=== PATIENT | male | born 1965 | race Caucasian/White ===

== ENCOUNTER 2019-10-19 07:50 | Emergency (ER) | payer OTHER, SELFPAY ==
--- NOTE | ~2019-10-19 | XR_ITS ---
EXAMINATION: XR chest 2V DATE: 10/19/2019 08:16 INDICATION: Heart fluttering TECHNIQUE: PA and lateral views of the chest were obtained. COMPARISON: None FINDINGS: The lungs are clear with no focal airspace opacities, pulmonary edema, pleural effusion or pneumothor ax. The cardiomediastinal silhouette is normal. Mild dextrocurvature the thoracolumbar junction. Mild thoracic spondylosis. IMPRESSION: 1. No acute cardiopulmonary disease. Reviewed, dictated and finalized at location A.
--- NOTE | 2019-10-19 07:52 | ECG_ITS ---
Measurements Intervals [place] Rate: 96 P: 73 NM: 159 QRS: 20 QRSD: 102 T: 49 QT: 345 QTc: 437 Interpretive Statements SINUS RHYTHM INCOMPLETE RIGHT BUNDLE BRANCH BLOCK BORDERLINE T WAVE ABNORMALITY- ANTERIOR LEADS BASELINE ARTIFACT- II, III, AVL, AVF BORDERLINE ECG Electronically Signed On 10-19-2019 8:03:11 CDT by Vikash Martinez D.O.
[2019-10-19 08:05] VITALS: BP 142/92; PULSE 90; RESP 22; TEMP 36.8; O2SAT 98
--- NOTE | 2019-10-19 08:07 | ED.ARRPALP ---
HPI - Arrhythmia/Palpitations General Chief Complaint: Arrhythmia/Palpitations Stated Complaint: don't feel right, heart fluttering Time Seen by Provider: 10/19/19 08:06 Source: patient and family Mode of arrival: ambulatory Limitations: no limitations History of Present Illness HPI narrative: Patient is a 54-year-old male who presents for evaluation of palpitations. Patient reports he was getting ready for work when he suddenly felt his heart beating rapidly, almost as if it was skipping beats, and patient states that he began to panic. Patient states he ate some breakfast and then began to feel a bit better, but still felt very panicked about the palpitations. He denied any chest pain, shortness of breath, nausea or diaphoresis. Patient states that he recently started some new blood pressure medications within the last 2 weeks, and has been referred to food safety field specialist Dr. Quijano for follow-up. No history of heart attack. There is a positive family history of coronary artery disease. Patient denies any current chest pain, shortness of breath or palpitations. He states symptoms lasted approximately 10 minutes before resolving. Patient states he felt slightly lightheaded and dizzy, but did not feel as if he was going to pass out. No current symptoms. Related Data Home Medications Medication Instructions Recorded Confirmed ergocalciferol (vitamin D2) 50,000 unit PO WEEKLY 10/19/19 [Vitamin D2] metoprolol succinate 25 mg PO HS 10/19/19 Allergies Allergy/AdvReac Type Severity Reaction Status Date / Time No Known Allergies Allergy Verified 10/19/19 09:34 Review of Systems Review of Systems: Narrative: CONSTITUTIONAL: Denies fever, chills, or sweats. EYES: Denies visual changes, redness, or discharge. ENT: Denies rhinorrhea, congestion, sore throat, or otalgia. CARDIOVASCULAR: Denies chest pain, reports palpitations now resolved RESPIRATORY: Denies cough or dyspnea. GASTROINTESTINAL: Denies abdominal pain, nausea, vomiting, or diarrhea. GENITOURINARY: Denies dysuria or hematuria. SKIN: Denies rash or itching. MUSCULOSKELETAL: Denies back pain, joint pain, or myalgia. NEUROLOGIC: Denies headache, numbness, or weakness. PSYCHIATRIC: History of anxiety PMFSH Past Medical History Medical History (Updated 10/19/19 @ 12:55 by Melony Quintero MD) Hypertension Surgical History Surgical History (Updated 10/19/19 @ 12:55 by Melony Quintero MD) No pertinent past surgical history Social History Social History (Updated 10/19/19 @ 12:55 by Melony Quintero MD) Smoking status: Never smoker Substance use: never Living arrangements: with family Gender identity (if verbalized by the patient): Male Sexual Orientation (if Verbalized by the Patient): Straight or Heterosexual Exam Narrative: Exam Narrative: GENERAL: Awake, alert, conversant, anxious appearing HEAD: Normocephalic, atraumatic. EYES: PERRLA and EOMI. ENT: Nares clear, no rhinorrhea or epistaxis. Mucous membranes moist. NECK: Supple. CHEST: No respiratory distress, breathing even and non labored HEART: Regular rate, sinus rhythm ABDOMEN:Non distended, non tender EXTREMITIES: Normal range of motion. No edema. SKIN: Warm, dry, no rash. NEURO:No focal deficits. Alert and oriented x3 Course Vital Signs Vital signs: Vital Signs Temperature 36.8 C 10/19/19 08:05 Pulse Rate 90 10/19/19 08:05 Respiratory Rate 22 H 10/19/19 08:05 Blood Pressure 142/92 H 10/19/19 08:05 Pulse Oximetry 98 10/19/19 08:05 Temperature 36.8 C 10/19/19 08:05 Pulse Rate 78 10/19/19 13:10 Respiratory Rate 20 10/19/19 13:10 Blood Pressure 130/84 10/19/19 13:10 Pulse Oximetry 99 10/19/19 13:10 MDM - Arrhythmia/Palpitations MDM Narrative Medical decision making narrative: Pt presented for evaluation of palpitations that are resolved at the time of assessment. Pt without other chest pain, anginal type symptoms. Pt with normal exam, no
[2019-10-19 09:00] VITALS: BP 146/94; PULSE 75; RESP 20; O2SAT 98
[2019-10-19 09:07] LABS: Basophils Absolute Auto 0.1 K/mm3 (0.0-0.1); Basophils Percent Auto 1.1 % (0.2-1.2); Eosinophils Percent Auto 0.5 % (0-4.4); Hemoglobin 14.7 g/dL (14.0-18.0); Immature Granulocyte Absolute 0.02 K/mm3 (0.00-0.031); Immature Granulocyte Percent A 0.3 % (0-0.5); Lymphocytes Absolute Auto 1.54 K/mm3 (0.9-3.2); Lymphocytes Percent Auto 20.9 % (18.3-44.2); Mean Corpuscular HGB Conc 34.2 g/dl (32-36); Mean Corpuscular Hemoglobin 30.1 pg (26-34); Mean Corpuscular Volume 88.1 fl (80-100); Mean Platelet Volume 9.5 fl (7.4-10.4); Monocytes Absolute Auto 0.6 K/mm3 (0.1-0.6); Neutrophils Absolute Auto 5.1 K/mm3 (1.3-6.7); Neutrophils Percent Auto 69.2 % (45.5-73.1); Platelet Count Result 210 k/mm3 (150-375); Red Blood Count 4.88 M/mm3 (4.6-6.20); Red Cell Distribution Width 12.4 % (11.5-14.5); White Blood Count 7.4 K/mm3 (4.5-10.0)
[2019-10-19 09:16] LABS: INR 1.1; Prothrombin Time 14.3 Seconds (11.1-14.7)
[2019-10-19 09:17] LABS: Partial Thromboplastin Time 28.4 SECONDS (22.3-36.8)
[2019-10-19 09:18] LABS: Blood Urea Nitrogen 17 mg/dL (9-20); Calcium 8.7 mg/dL (8.4-10.2); Carbon Dioxide 24 mmol/L (22-30); Chloride 105 mmol/L (98-107); Estimated CRCL calculation 78 ml/min; Estimated Glomerular Filt Rate > 60; Glucose 115 mg/dL (75-110); Potassium 4.6 mmol/L (3.4-5.0); Sodium 137 mmol/L (137-145)
[2019-10-19 09:30] VITALS: BP 135/88; PULSE 66; RESP 20; O2SAT 100
[2019-10-19 09:30] LABS: Troponin I < 0.012 ng/mL (0.000-0.034)
[2019-10-19] MEDS: ASPIRIN 81 MG CHEWABLE TABLET 324 MG PO (09:31)
[2019-10-19 11:00] VITALS: BP 146/94; PULSE 82; RESP 20; O2SAT 99
[2019-10-19 12:00] VITALS: BP 130/99; PULSE 75; RESP 20; O2SAT 100
[2019-10-19 12:51] LABS: Troponin I < 0.012 ng/mL (0.000-0.034)
[2019-10-19 13:10] VITALS: BP 130/84; PULSE 78; RESP 20; O2SAT 99
--- NOTE | 2019-10-26 12:09 | WPDHOLTEREM ---
Holter/Event Monitor Holter/Event Monitor Date of procedure: 10/19/19 Procedure Type: 48 hour holter monitor Indications: Palpitations Conclusion: 1. 48 hour holter monitor on 10/19/19. 2. Underlying rhythm is sinus rhythm. HR range 46-152 bpm; average HR 67 bpm. 3. There are 26 premature supraventricular complexes. One episode of atrial tachycardia at 110 bpm lasting 6 beats. 4. No premature ventricular complex. No ventricular tachycardia. 5. No sinoatrial or atrioventricular blocks. No significant pauses greater than 2 seconds. 6. No symptoms available for correlation.
== END 2019-10-19 13:12 | disposition home or self-care (01) ==
PROVIDERS: Emergency Provider Emergency Medicine; PCP Family Medicine
DX: R00.2 Palpitations (principal); I10 Essential (primary) hypertension; I45.10 Unspecified right bundle-branch block; R94.31 Abnormal electrocardiogram [ECG] [EKG]
CPT/HCPCS: 36415; 71046; 80048; 84484; 85025; 85610; 85730; 93005; 93225; 93226; 99284; A9270

== ENCOUNTER 2020-11-06 01:00 | Emergency (ER) | payer OTHER, SELFPAY ==
--- NOTE | ~2020-11-06 | XR_ITS ---
EXAMINATION: XR chest 1V portable DATE: 11/06/2020 01:18 INDICATION: Chest pain. Heart flutter. TECHNIQUE: frontal view of the chest was obtained. COMPARISON: Chest radiograph dated 10/19/2019 FINDINGS: The lungs are clear with no focal airspace opacities, pulmonary edema, pleural effusion or pneumothor ax. The cardiomediastinal silhouette is normal. Visualized bones and soft tissues are unremarkable. IMPRESSION: 1. No acute cardiopulmonary disease. Reviewed, dictated and finalized at location A.
--- NOTE | 2020-11-06 01:08 | ECG_ITS ---
Measurements Intervals [place] Rate: 100 P: 68 [place]: 167 QRS: -9 QRSD: 102 T: 38 QT: 353 QTc: 456 Interpretive Statements SINUS TACHYCARDIA INCOMPLETE RIGHT BUNDLE BRANCH BLOCK EARLY PRECORDIAL R/S TRANSITION ST-T WAVE ABNORMALITY IN ANTEROLATERAL LEADS- CONSIDER ISCHEMIA BASELINE ARTIFACT- II, III, AVF, V1, V4 ABNORMAL ECG Electronically Signed On 11-06-2020 5:56:56 CDT by Vikash Martinez D.O.
[2020-11-06 01:13] VITALS: BP 166/86; PULSE 110; RESP 16; TEMP 36.7; O2SAT 100
[2020-11-06 01:18] LABS: Basophils Absolute Auto 0.2 K/mm3 (0.0-0.1); Basophils Percent Auto 1.2 % (0.2-1.2); Eosinophils Absolute Auto 0.1 K/mm3 (0-0.3); Eosinophils Percent Auto 1.1 % (0-4.4); Hematocrit 44.5 % (42.0-52.0); Hemoglobin 14.9 g/dL (14.0-18.0); Immature Granulocyte Absolute 0.03 K/mm3 (0.00-0.031); Immature Granulocyte Percent A 0.2 % (0-0.5); Lymphocytes Absolute Auto 5.84 K/mm3 (0.9-3.2); Lymphocytes Percent Auto 45.4 % (18.3-44.2); Mean Corpuscular HGB Conc 33.5 g/dl (32-36); Mean Corpuscular Hemoglobin 30.5 pg (26-34); Mean Corpuscular Volume 91.2 fl (80-100); Mean Platelet Volume 9.9 fl (7.4-10.4); Monocytes Absolute Auto 1.4 K/mm3 (0.1-0.6); Monocytes Percent Auto 10.8 % (2.6-8.5); Neutrophils Absolute Auto 5.3 K/mm3 (1.3-6.7); Neutrophils Percent Auto 41.3 % (45.5-73.1); Platelet Count Result 291 k/mm3 (150-375); Red Blood Count 4.88 M/mm3 (4.6-6.20); Red Cell Distribution Width 12.4 % (11.5-14.5); White Blood Count 12.9 K/mm3 (4.5-10.0)
[2020-11-06] MEDS: ASPIRIN 81 MG CHEWABLE TABLET 324 MG PO (01:29)
[2020-11-06] MEDS: ONDANSETRON INJ 4 MG/2 ML VIAL IV PUSH (01:30)
[2020-11-06] MEDS: MORPHINE SULFATE (*CRX) 4 MG/ML INJ IV PUSH (01:31)
[2020-11-06 01:45] LABS: NT Pro B Type Natriuretic Pept 41 pg/mL (5-100); Troponin I < 0.012 ng/mL (0.000-0.034)
[2020-11-06 01:49] LABS: Alanine Aminotransferase 19 U/L (4-50); Albumin Level 4.3 g/dL (3.5-5.1); Alkaline Phosphatase 66 U/L (38-126); Anion Gap 16 mmol/L (8-16); Aspartate Amino Transferase 29 U/L (17-59); Bilirubin,Total 0.4 mg/dL (0.2-1.3); Blood Urea Nitrogen 13 mg/dL (9-20); Calcium 8.6 mg/dL (8.4-10.2); Carbon Dioxide 19 mmol/L (22-30); Chloride 100 mmol/L (98-107); Estimated Glomerular Filt Rate > 60; Glucose 155 mg/dL (65-110); Lipase 51 U/L (23-300); Potassium 3.4 mmol/L (3.4-5.0); Sodium 135 mmol/L (137-145)
--- NOTE | 2020-11-06 01:56 | ED.GENADULT ---
HPI - General Adult General Chief complaint: Dizziness Stated complaint: HEART ATTACK Time Seen by Provider: 11/06/20 01:08 History of Present Illness HPI narrative: Patient 55-year-old gentleman who presents the emergency department chief complaint of lightheadedness and near syncope. The patient reports that this evening he had sudden onset of nausea and vomited once and reports that he had a little bit of discomfort in his chest patient states that felt as though he was going to pass out but did not actually pass out. Patient denies shortness of breath family reports that he look rather pale after he vomited. Related Data Home Medications Medication Instructions Recorded Confirmed ergocalciferol (vitamin D2) 50,000 unit PO WEEKLY 10/19/19 [Vitamin D2] metoprolol succinate 25 mg PO HS 10/19/19 Allergies Allergy/AdvReac Type Severity Reaction Status Date / Time No Known Allergies Allergy Verified 10/19/19 09:34 Review of Systems Review of Systems: A 10 system review of systems was completed on the patient and is negative except for what is stated in the HPI. Nursing and ancillary documentation was reviewed. PMFSH Past Medical History Medical History Hypertension Surgical History Surgical History No pertinent past surgical history Social History Social History Smoking status: Never smoker Substance use: never Gender identity (if verbalized by the patient): Male Exam Narrative: GENERAL: Well-appearing, well-nourished, and in no acute distress. HEAD: Normocephalic, atraumatic. EYES: PERRLA and EOMI. ENT: Nares clear, no rhinorrhea or epistaxis. Mucous membranes moist. NECK: Supple. CHEST: Clear to auscultation. No respiratory distress. HEART: Regular rate and rhythm. No murmur heard. Normal peripheral pulses. ABDOMEN: Soft, nontender, nondistended, normal active bowel sounds. EXTREMITIES: Normal range of motion. No edema. SKIN: Warm, dry, no rash. NEURO: No focal deficits. Alert and oriented x3. PSYCH: Normal mood and affect. Course Vital Signs Vital signs: Vital Signs Temperature 36.7 C 11/06/20 01:13 Pulse Rate 110 H 11/06/20 01:13 Respiratory Rate 16 11/06/20 01:13 Blood Pressure 166/86 H 11/06/20 01:13 Pulse Oximetry 100 11/06/20 01:13 Temperature 36.7 C 11/06/20 01:13 Pulse Rate 69 11/06/20 05:08 Respiratory Rate 20 11/06/20 05:08 Blood Pressure 108/77 11/06/20 05:08 Pulse Oximetry 96 11/06/20 05:08 Medical Decision Making Vital Signs Vital Signs: Vital Signs Temperature 36.7 C 11/06/20 01:13 Pulse Rate 110 H 11/06/20 01:13 Respiratory Rate 16 11/06/20 01:13 Blood Pressure 166/86 H 11/06/20 01:13 Pulse Oximetry 100 11/06/20 01:13 Temperature 36.7 C 11/06/20 01:13 Pulse Rate 69 11/06/20 05:08 Respiratory Rate 20 11/06/20 05:08 Blood Pressure 108/77 11/06/20 05:08 Pulse Oximetry 96 11/06/20 05:08 Lab Data Result diagrams: 11/06/20 01:12 11/06/20 01:12 Labs: Lab Results 11/06/20 11/06/20 11/06/20 Range/Units 01:12 01:12 02:17 WBC 12.9 H (4.5-10.0) K/mm3 RBC 4.88 (4.6-6.20) M/mm3 Hgb 14.9 (14.0-18.0) g/dL Hct 44.5 (42.0-52.0) % MCV 91.2 (80-100) fl MCH 30.5 (26-34) pg MCHC 33.5 (32-36) g/dl RDW 12.4 (11.5-14.5) % Plt Count 291 (150-375) k/mm3 MPV 9.9 (7.4-10.4) fl Immature Gran % (Auto) 0.2 (0-0.5) % Neut % (Auto) 41.3 L (45.5-73.1) % Lymph % (Auto) 45.4 H (18.3-44.2) % [place] % (Auto) 10.8 H (2.6-8.5) % Eos % (Auto) 1.1 (0-4.4) % Baso % (Auto) 1.2 (0.2-1.2) % Lymph # (Auto) 5.84 H (0.9-3.2) K/mm3 [place] # (Auto) 1.4 H (0.1-0.6) K/mm3 Eos # (Auto) 0.1 (0-0.3) K/mm3 Baso # (Auto) 0
--- NOTE | 2020-11-06 02:00 | PC.NURSE ---
Pt. states unable to void at this time.
[2020-11-06] MEDS: SODIUM CHLORIDE 0.9% IV 1,000 ML 999 ML IV CONT ×2 (02:15→04:52)
--- NOTE | 2020-11-06 02:58 | PC.NURSE ---
PT. attempted for urine sample states he cannot go.
[2020-11-06 02:59] VITALS: BP 112/68; PULSE 79; RESP 20; O2SAT 98
[2020-11-06 03:05] LABS: Partial Thromboplastin Time 23.6 SECONDS (22.3-36.8); Prothrombin Time 13.4 Seconds (11.1-14.7)
[2020-11-06 04:08] LABS: Add Urine Microscopic? YES; Appearance Urine Clear (Clear); Bilirubin Urine Negative (Negative); Blood Urine Negative (Negative); Color Urine Yellow (Yellow); Glucose Urine UA Negative (Negative); Ketones Urine Negative (Negative); Leukocyte Esterase Ur Negative LEU/UL (Negative); Mucus Urine Few /lpf; Nitrate Urine Negative (Negative); Protein Urine Negative (Negative); Specific Grav Ur 1.024 (1.001-1.035); Urobilinogen Urine Negative mg/dL (<2.0); WBC Urine 0-3 /hpf
[2020-11-06 05:07] LABS: Troponin I < 0.012 ng/mL (0.000-0.034)
[2020-11-06 05:08] VITALS: BP 108/77; PULSE 69; RESP 20; O2SAT 96
[2020-11-06] MEDS: MECLIZINE HCL 25 MG TABLET 50 MG PO (05:17)
[2020-11-06 06:00] VITALS: BP 113/74; PULSE 69; RESP 16; O2SAT 99
--- NOTE | 2020-11-06 06:00 | PC.NURSE ---
Pt. denies Chest pain and does not want nitro. ERP made aware
== END 2020-11-06 06:00 | disposition home or self-care (01) ==
PROVIDERS: Emergency Provider Emergency Medicine; PCP Family Medicine
DX: R42 Dizziness and giddiness (principal); R00.2 Palpitations; H65.191 Other acute nonsuppurative otitis media, right ear; H61.21 Impacted cerumen, right ear; I10 Essential (primary) hypertension; R00.0 Tachycardia, unspecified; I45.10 Unspecified right bundle-branch block; R94.31 Abnormal electrocardiogram [ECG] [EKG]
CPT/HCPCS: 36415; 71045; 80053; 81001; 83690; 83880; 84484; 85025; 85610; 85730; 93005; 96361; 96374; 96375; 99284; A9270; J2270; J2405; J7030